=== PATIENT | male | born 2000 | race Two or more races ===

== ENCOUNTER 2025-09-24 10:37 | Emergency (ER) | payer SELFPAY ==
[~2025-09-24] VITALS: Ht 172.7 cm; Wt 105.8 kg
--- NOTE | 2025-09-24 10:55 | ED.PDOC ---
Musculoskeletal HPI Comments This is a 25 year old male presenting to the ED with chief complaint of left ankle pain. Patient reports that during [place], he had accidentally turned too fast, twisting his left ankle in the process. Patient relays that since then he has been experiencing pain, swelling, and bruising to his left ankle. Patient states he has been icing, elevating, and resting his left ankle, but pain is still noted. Patient denies any fall, injury, numbness, weakness, or tingling. Chief Complaint: Lower Extremity Time Seen by MD: 10:53 Reviewed Notes: Nurses Notes, Medications, Allergies Allergies: Coded Allergies: NO KNOWN ALLERGIES (Unverified , 09/24/25) Information Source: Patient Mode of Arrival: Ambulatory Location: Left Extremity Location: Ankle Timing: Days Prehospital treatment: None Severity: Moderate Able to Move Extremity: Yes Bear Weight: Limited Pain: Moderate Mechanism: Twisting Circumstances: Accident Onset of Symptoms: Spontaneous Symptoms: Swelling, Pain DVT Risk Factors: NONE Last Tetanus: UTD Associated signs and symptoms: Ankle pain Past Medical History PAST MEDICAL HISTORY: Denies Surgical History: Denies all surgeries Family History Family History: Reviewed,noncontributory to illness Social History Smoker: Non-Smoker Alcohol: Denies ETOH Use Drugs: Denies Drug Use Lives In: Home Constitutional: denies: chills, diaphoresis, fatigue, fever, malaise, sweats, weakness, others EENTM: denies: blurred vision, double vision, ear bleeding, ear discharge, ear drainage, ear pain, ear ringing, eye pain, eye redness, hearing loss, mouth pain, mouth swelling, nasal discharge, nose bleeding, nose congestion, nose pain, photophobia, tearing, throat pain, throat swelling, voice changes, others Respiratory: denies: cough, hemoptysis, orthopnea, SOB at rest, shortness of breath, SOB with excertion, stridor, wheezing, others Cardiovascular: denies: chest pain, dizzy spells, diaphoresis, Dyspnea on exertion, edema, irregular heart beat, left arm pain, lightheadedness, palpitations, PND, syncope, others Gastrointestinal: denies: abdomen distended, abdominal pain, blood streaked bowels, constipated, diarrhea, dysphagia, difficulty swallowing, hematemesis, melena, nausea, poor appetite, poor fluid intake, rectal bleeding, rectal pain, vomiting, others Genitourinary: denies: burning, dysuria, flank pain, frequency, hematuria, incontinence, penile discharge, penile sore, pain, testicle pain, testicle swelling, urgency, others Neurological: denies: dizziness, fainting, headache, left sided numbness, left sided weakness, numbness, paresthesia, pre-existing deficit, right sided numbness, right sided weakness, seizure, speech problems, tingling, tremors, weakness, others Musculoskeletal: reports: joint pain, others (Left ankle pain); denies: back pain, gout, joint swelling, muscle pain, muscle stiffness, neck pain Integumetry: denies: bruises, change in color, change in hair/nails, dryness, laceration, lesions, lumps, rash, wounds, others Allergic/Immunocompromised: denies: Difficulty Healing, Frequent Infections, Hives, Itching, others Hematologic/Lymphatic: denies: anemia, blood clots, easy bleeding, easy bruising, swollen glands, others Endocrine: denies: excessive hunger, excessive sweating, excessive thirst, excessive urination, flushing, intolerance to cold, intolerance to heat, unexplained weight gain, unexplained weight loss, others Psychiatric: denies: anxiety, bipolar disorder, depression, hopeless, panic disorder, schizophrenia, sleepless, suicidal, others All Other Systems: Reviewed and Negative Physical Exam General Appearance: No Apparent Distress, Normal HEENT: Normal ENT Inspection, Pharynx Normal, TMs Normal Neck: Full Range of Motion, Non-Tender, Normal, Normal Inspection Respiratory: Chest Non-Tender, Lungs Clear, No Accessory Muscle Use, No Respiratory Distress, Normal Breath Sounds Cardiovascular: No Edema, No JVD, No Murmur, No Gallop, Normal Peripheral Pulses, Regular Rate/Rhythm Breast Exam: Deferred Gastrointestinal: No Organomegaly, Non Tender, No Pulsatile Mass, Normal Bowel Sounds, Soft Genitalia: Deferred Pelvic: Deferred Rectal: Deferred Extremities: No calf tenderness, Normal capillary refill, Normal inspection, Normal range of motion, Non-tender, No pedal edema Musculoskeletal : Location: Left Extremity Location: Ankle Apperance: Tenderness (Tenderness to bilateral malleoli with minimal swelling noted.) 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 Was a procedure done?: No Differential Diagnosis EXT Differential Diagnosis: Fracture, Sprain, Strain X-Ray, Labs, Meds, VS Vital Signs Date Time Temp Pulse Resp B/P (MAP) Pulse Ox O2 Delivery O2 Flow Rate FiO2 09/24/25 11:31 98.7 09/24/25 10:40 97.8 73 15 141/79 97 97.8 Current Medications Medications (Trade) Dose Ordered Sig/Love Route Start Time Stop Time Status Last Admin Ketorolac Tromethamine (Toradol Injection) 30 mg ONCE ONCE IM 09/24/25 11:00 09/24/25 11:01 DC 09/24/25 11:33 Acetaminophen (Tylenol Tablet Or Capsule) 1,000 mg ONCE ONCE PO 09/24/25 11:00 09/24/25 11:01 DC 09/24/25 11:31 [place] [id number] Ph: [phone] DIAGNOSTIC IMAGING Diagnostic Imaging Report : [id number] Signed PATIENT: ANJALI PERES ACCT: [id number] UNIT: [id number] : 2000 LOC: ER ROOM / BED: / AGE / SEX: 25 / M ADM STATUS: REG ER SERVICE 1050 ORDERING PHYSICIAN: SUELLEN ALEJANDRE MD PROCEDURE(s): LANKL - L ANKLE 3 VIEW REASON: left ankle pain after rolling ankle ORDER NUMBER(s): [id number], ACCESSION NUMBER(s): [id number] CLINICAL INDICATION: left ankle pain after rolling ankle TECHNIQUE: XY L ANKLE 3 VIEW COMPARISON: None FINDINGS/IMPRESSION: : There is no evidence of acute fracture or dislocation. Soft tissues are unremarkable. ATED BY: PARMJIT BALL MD DICTATED DATE/TIME: 09/24/251126 SIGNED BY: PARMJIT BALL MD SIGNED DATE/TIME: 09/24/251126 CC: Images Reviewed?: Images reviewed and evaluated by me Time of 1ST Reevaluation: 11:53 Reevaluation 1ST: Improved Patient Education/Counseling: Diagnosis, Treatment Family Education/Counseling: No Family Present Departure 1 Departure Time of Disposition: 11:39 (25-year-old male with left ankle pain over the past 4 days. Patient has minimal swelling noted and tenderness along bilateral malleoli. Given the continued pain consider possible ankle fracture. X-ray of the left ankle was performed which is negative for underlying fractures. Patient likely with an ankle sprain. Was given IM Toradol, oral Tylenol for analgesia. Given crutches for support. Patient is stable for discharge for further outpatient management.) Impression: Primary Impression: Left ankle pain Additional Impression: Left ankle sprain Disposition: HOME / SELF CARE / HOMELESS Condition: Stable Additional Instructions: Your x-ray shows no evidence of broken bones. You likely have an ankle sprain. Elevate your leg whenever you at rest. Ice it several times throughout the day. Take Tylenol, ibuprofen as needed for swelling, pain. Use crutches to try not to put full weight on your ankle. You can then slowly start to bear full weight as you can tolerate. Discharged With: Self Critical Care Note Critical Care Time?: No Stability Stability form required: No Heart Score Heart Score: Heart Score Response (Comments) Value History N/A 0 EKG N/A 0 Age N/A 0 Risk Factors N/A 0 Troponin N/A 0 Total 0 I personally scribed for SUELLEN ALEJANDRE MD ([email or web address]) on 09/24/25 at 10:55. Electronically submitted by Isacc Castellanos ([email or web address]). I personally scribed for SUELLEN ALEJANDRE MD ([email or web address]) on 09/24/25 at 11:31. Electronically submitted by Isacc Castellanos ([email or web address]). SUELLEN ALEJANDRE MD Sep 24, 2025 10:55
--- NOTE | 2025-09-24 11:30 | DVH ---
CLINICAL INDICATION: left ankle pain after rolling ankle TECHNIQUE: XY L ANKLE 3 VIEW COMPARISON: None FINDINGS/IMPRESSION: : There is no evidence of acute fracture or dislocation. Soft tissues are unremarkable.
[2025-09-24] MEDS: ACETAMINOPHEN 500 MG TAB or CAP PO ONE (11:31)
[2025-09-24] MEDS: KETOROLAC TROMETH 60MG/2ML VIAL IM ONE (11:33)
[2025-09-24 11:48] VITALS: BP 124/67; PULSE 64; RESP 16; O2SAT 97
[2025-09-24 12:13] VITALS: TEMP 98.2
== END 2025-09-24 12:15 | disposition home or self-care (01) ==
LOC: ER 10:37
DX: S93.402A Sprain of unspecified ligament of left ankle, initial encounter (principal); S90.02XA Contusion of left ankle, initial encounter; X50.1XXA Overexertion from prolonged static or awkward postures, initial encounter; Y93.89 Activity, other specified; Y92.89 Other specified places as the place of occurrence of the external cause; Y99.8 Other external cause status
CPT/HCPCS: 73610; 96372; 99283; J1885